=== PATIENT | male | born 1960 | race Caucasian/White ===

== ENCOUNTER 2016-09-15 10:20 | Emergency (ER) | payer BC ==
[2016-09-15 10:32] VITALS: BP 134/91
--- NOTE | 2016-09-15 13:27 | EDM.PDOC ---
Scribed by Nu Hyde 09/15/16 3225 for Tyrese Mak MD ED HPI Trauma - General Chief Complaint: Upper Extremity Injury/Pain Stated Complaint: ARM PAIN [id number] Time Seen by Provider: 09/15/16 11:19 Source: Reports: Patient, RN, RN notes reviewed History Limitations: Reports: No limitations - History of Present Illness INITIAL COMMENTS - FREE TEXT/NARRATIVE: Patient complaining of right arm strain that occurred yesterday when he lifted a heavy steel gate. Patient pulled hard and fast on the gate expecting it to lift up, but it was frozen to the ground. Complaining of pain in the muscles/ tenderness around the right elbow and shoulder. Pain is better with right arm at rest and worse with movement of elbow. Occurred When: yesterday Occurred Where: home Method of Injury: other (lifting a gate) Severity: mild Pain/Injury Location: Reports: upper extremity, right Associated Symptoms: Reports: no other symptoms Allergies/ADRs: Allergies Phenothiazines Allergy (Verified 09/15/16 10:37) Shortness of Breath prochlorperazine [From Compazine] Allergy (Verified 09/15/16 10:37) Anaphylactic Shock prochlorperazine edisylate [From Compazine] Allergy (Verified 09/15/16 10:37) Anaphylactic Shock prochlorperazine maleate [From Compazine] Allergy (Verified 09/15/16 10:37) Anaphylactic Shock Past Medical History HEENT History: Reports: Impaired vision, Other (see below) Other HEENT History: WEARS CORRECTIVE LENSES Cardiovascular History: Reports: None Respiratory History: Reports: None Gastrointestinal History: Reports: None Genitourinary History: Reports: None Musculoskeletal History: Reports: Back pain, chronic, Fracture, Other (see below ) Other Musculoskeletal History: DISPLACEMENT OF THORACIC INTERVERTEBRAL DISC WITHOUT MYELOPATHY; 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;R MALLEOLUS Neurological History: Reports: Concussion Psychiatric History: Reports: None Endocrine/Metabolic History: Reports: None Hematologic History: Reports: None Immunologic History: Reports: None Oncologic (Cancer) History: Reports: None Dermatologic History: Reports: None - Infectious Disease History Infectious Disease History: Reports: Chicken pox, Shingles - Past Surgical History Head Surgeries/Procedures: Reports: None HEENT Surgical History: Reports: None Cardiovascular Surgical History: Reports: None Respiratory Surgical History: Reports: None GI Surgical History: Reports: Appendectomy Male Surgical History: Reports: None Endocrine Surgical History: Reports: None Neurological Surgical History: Reports: None Musculoskeletal Surgical History: Reports: None Oncologic Surgical History: Reports: None Dermatological Surgical History: Reports: None Social & Family History - Family History Family Medical History: Noncontributory - Tobacco Use Smoking Status *Q: Never Smoker Second Hand Smoke Exposure: No - Caffeine Use Caffeine Use: Reports: None - Recreational Drug Use Recreational Drug Use: No Review of Systems - Review of Systems Review Of Systems: ROS reveals no pertinent complaints other than HPI. Trauma Exam - Physical Exam Exam: See Below Exam Limited By: No limitations General Appearance: Reports: alert, WD/WN, no apparent distress Head: Reports: atraumatic, normocephalic Respiratory Exam: Reports: no respiratory distress Cardiovascular: Reports: normal peripheral pulses Back: Reports: full range of motion, normal inspection, non-tender Extremities: Reports: other (right upper extremity with full range of motion. No visible swelling, bruising or deformity. 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 X-ray elbow: Per rad report reveals degenerative changes in the coronoid process within the humeroulnar joint. Departure - Departure Time of Disposition: 12:00 Disposition: Home, Self-Care 01 Condition: good Clinical Impression: Upper right extremity tendon strain Qualifiers: Encounter type: initial encounter Qualified Code(s): S46.901A - Unspecified injury of unspecified muscle, fascia and tendon at shoulder and upper arm level , right arm, initial encounter Instructions: Tendinitis and Tenosynovitis-SportsMed, Tendon Injury Forms: ED Department Discharge Additional Instructions: Rest right arm. Alternate heat and ice packs as needed. Over the counter Ibuprofen as needed. Follow up in clinic in 7-10 days. I have read and agree with the documentation that has been completed regarding this visit. By signing this record, I attest that the documentation was completed in my physical presence and is an accurate record of the encounter.
== END 2016-09-15 12:15 | disposition home or self-care (01) ==
LOC: DL.ED 10:20
DX: S46.911A Strain of unspecified muscle, fascia and tendon at shoulder and upper arm level, right arm, initial encounter (principal); Z90.49 Acquired absence of other specified parts of digestive tract; Z88.8 Allergy status to other drugs, medicaments and biological substances; X50.0XXA Overexertion from strenuous movement or load, initial encounter; Y92.009 Unspecified place in unspecified non-institutional (private) residence as the place of occurrence of the external cause
CPT/HCPCS: 73030-RT; 73080-RT; 99283

== ENCOUNTER 2017-09-12 14:40 | Emergency (ER) | payer BC ==
--- NOTE | 2017-09-12 14:56 | EDM.PDOC ---
ED HPI GENERAL MEDICAL PROBLEM - General Chief Complaint: Genitourinary Problem Stated Complaint: [id number] KIDNEY STONE Time Seen by Provider: 09/12/17 14:55 Source of Information: Reports: Patient, RN, RN Notes Reviewed History Limitations: Reports: No Limitations - History of Present Illness INITIAL COMMENTS - FREE TEXT/NARRATIVE: Patient presents with complaint of sudden onset of severe left flank radiating to the left lower abdomen and groin about 1 hour prior to arrival. Denies fevers or chills. Admits to nausea without vomiting which resolved as the pain improved. The patient states that he could not find a comfortable position when the pain was severe. The patient rates the pain at maximum intensity as 10/10. Rates current pain as 5/10. Denies any other symptoms. Onset: Today Duration: Minutes: Location: Reports: Other (flank) Quality: Reports: Ache Severity: Severe Improves with: Reports: None Worsens with: Reports: None Associated Symptoms: Reports: No Other Symptoms Left Lower Abdomen Pain Score (Numeric/FACES): 11 - Related Data Allergies Allergy/AdvReac Type Severity Reaction Status Date / Time Phenothiazines Allergy Shortness Verified 09/12/17 15:11 of Breath prochlorperazine Allergy Anaphylactic Verified 09/12/17 15:11 [From Compazine] Shock prochlorperazine edisylate Allergy Anaphylactic Verified 09/12/17 15:11 [From Compazine] Shock prochlorperazine maleate Allergy Anaphylactic Verified 09/12/17 15:11 [From Compazine] Shock Home Meds: Home Meds . 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;R MALLEOLUS Neurological History: Reports: Concussion Psychiatric History: Reports: None Endocrine/Metabolic History: Reports: None Hematologic History: Reports: None Immunologic History: Reports: None Oncologic (Cancer) History: Reports: None Dermatologic History: Reports: None - Infectious Disease History Infectious Disease History: Reports: Chicken Pox, Shingles - Past Surgical History Head Surgeries/Procedures: Reports: None HEENT Surgical History: Reports: None Cardiovascular Surgical History: Reports: None Respiratory Surgical History: Reports: None GI Surgical History: Reports: Appendectomy Male Surgical History: Reports: None Endocrine Surgical History: Reports: None Neurological Surgical History: Reports: None Musculoskeletal Surgical History: Reports: None Oncologic Surgical History: Reports: None Dermatological Surgical History: Reports: None Social & Family History - Family History Family Medical History: Noncontributory - Tobacco Use Smoking Status *Q: Never Smoker Second Hand Smoke Exposure: No - Caffeine Use Caffeine Use: Reports: None - Recreational Drug Use Recreational Drug Use: No ED ROS GENERAL - Review of Systems Review Of Systems: ROS reveals no pertinent complaints other than HPI. ED EXAM, RENAL/ - Physical Exam Exam: See Below Exam Limited By: No Limitations General Appearance: Alert, WD/WN, No Apparent Distress Throat/Mouth: Normal Inspection, Normal Voice, No Airway Compromise Head: Atraumatic, Normocephalic Neck: Normal Inspection Respiratory/Chest: No Respiratory Distress, Lungs Clear, Normal Breath Sounds, No Accessory Muscle Use, Chest Non-Tender Cardiovascular: Normal Peripheral Pulses, Regular Rate, Rhythm, No Edema, No Gallop, No JVD, No Murmur, No Rub GI/Abdominal: Normal Bowel Sounds, Soft, Non-Tender, No Organomegaly, No Distention, No Abnormal Bruit, No Mass. No: Guarding, Rigid, Rebound (Male) Exam: Deferred Rectal (Males) Exam: Deferred Back Exam: Normal Inspection, Full Range of Motion, CVA Tenderness (L) (very mild left CVA tenderness) Extremities: Normal Inspection Neurological: Alert, Oriented, CN II-XII Intact, Normal Cognition, Normal Gait, No Motor/Sensory Deficits Psychiatric: Normal Affect, Normal Mood Skin Exam: Warm, Dry, Intact, Normal Color, No Rash Course - Vital Signs Last Recorded V/S: Last Vital Signs Temp 36.9 C 09/12/17 17:15 Pulse 68 09/12/17 17:15 Resp 16 09/12/17 17:15 BP 119/74 09/12/17 17:15 Pulse Ox 98 09/12/17 17:15 - Orders/Labs/Meds Orders: Active Orders 24 hr Category Date Time Status Peripheral IV Care [RC] . DIRECTED Care 09/12/17 15:14 Active Sodium Chloride 0.9% [Saline Flush] Med 09/12/17 15:14 Active 10 ml FLUSH ASDIRECTED PRN Peripheral IV Insertion Adult [OM.PC] Stat Oth 09/12/17 15:14 Ordered Medication Orders Sodium Chloride (Saline Flush) 10 ml FLUSH ASDIRECTED PRN PRN Reason: Keep Vein Open Last Admin: 09/12/17 15:19 Dose: 10 ml Labs: Laboratory Tests 09/12/17 09/12/17 09/12/17 Range/Units 14:47 14:55 14:55 WBC 11.0 H (5.0-10.0) 10^3/uL RBC 4.76 (4.6-6.2) 10^6/uL Hgb 14.6 (14.0-18.0) g/dL Hct 43.3 (40.0-54.0) % MCV 91.0 (80-100) fL MCH 30.7 (27.0-34.0) pg MCHC 33.7 (33.0-35.0) g/dL Plt Count 228 (150-450) 10^3/uL Neut % (Auto) 81.1 H (42.2-75.2) % Lymph % (Auto) 8.1 L (20.5-50.1) % [place] % (Auto) 8.6 H (2-8) % Eos % (Auto) 1.8 (1.0-3.0) % Baso % (Auto) 0.4 (0.0-1.0) % Sodium 139 (135-145) mmol/L Potassium 4.0 (3.6-5.0) mmol/L Chloride 104 (101-111) mmol/L Carbon Dioxide 27.0 (21.0-31.0) mmol/L Anion Gap 12.0 BUN 17 (7-18) mg/dL Creatinine 1.1 (0.6-1.3) mg/dL Est Cr Clr Drug Dosing 83.28 mL/min Estimated GFR (MDRD) > 60 BUN/Creatinine Ratio 15.45 Glucose 81 (74-105) mg/dL Calcium 8.9 (8.4-10.2) mg/dl Total Bilirubin 0.7 (0.2-1.0) mg/dL AST 30 (10-42) IU/L ALT 37 (10-60) IU/L Alkaline Phosphatase 64 (42-121) IU/L Total Protein 7.1 (6.7-8.2) g/dl Albumin 4.2 (3.2-5.5) g/dl Globulin 2.9 Albumin/Globulin Ratio 1.45 Urine Color Yellow (YELLOW) Urine Appearance Slightly cloudy (CLEAR) Urine pH 6.0 (5.0-9.0) Ur Specific [place] 1.025 (1.005-1.030) Urine Protein 30 H (NEGATIVE) Urine Glucose (UA) Negative (NEGATIVE) Urine Ketones Trace H (NEGATIVE) Urine Occult Blood Large H (NEGATIVE) Urine Nitrite Negative (NEGATIVE) Urine Bilirubin Negative (NEGATIVE) Urine Urobilinogen 0.2 (0.2-1.0) mg/dL Ur Leukocyte Esterase Trace H (NEGATIVE) Urine RBC 50-75 H /HPF Urine WBC 0-5 (0-5/HPF) /HPF Ur Epithelial Cells Rare /HPF Amorphous Sediment Rare (0/HPF) /HPF Urine Bacteria Rare (0-FEW/HPF) /HPF Urine Mucus Rare /LPF Urine Yeast Rare H (0/HPF) /HPF Meds: Medications Generic Name Dose Route Start Last Admin Trade Name Freq PRN Reason Stop Dose Admin Sodium Chloride 10 ml 09/12/17 15:14 09/12/17 15:19 Saline Flush FLUSH 10 ml ASDIRECTED PRN Administration Keep Vein Open Discontinued Medications Generic Name Dose Route Start Last Admin Trade Name Freq PRN Reason Stop Dose Admin Ketorolac Tromethamine 30 mg 09/12/17 15:14 09/12/17 15:18 Toradol IVPUSH 09/12/17 15:15 30 mg ONETIME ONE Administration Ondansetron HCl 4 mg 09/12/17 15:14 Zofran IV 09/12/17 15:15 ONETIME ONE Tamsulosin HCl 0.4 mg 09/12/17 17:45 Flomax PO 09/12/17 17:46 ONETIME ONE - Radiology Interpretation Free Text/Narrative:: CT abdomen and pelvis: Multiple tiny 1-3mm diameter calyceal calcifications scattered mid and lower poles both kidneys (3cm on the left, one on the right). Asymmetric mild dilatation of the renal pelvis and calyces on the left with relative slight dilatation of the ipsilateral ureter (suggest recently passed tiny stone located in the dependent portion of the urinary bladder). No cystic or solid renal cortical mass lesion and no signs of obstructive uropathy on the right. Punctate midline prostatic (urethral?) calcifications and probable phleboliths lower pelvis on the left. No previous exams. Contracted gallbladder , unenhanced liver, stomach, spleen, pancreas and adrenal glands unremarkable. No diverticula of the colon and no sign of mechanical bowel obstruction, pelvic/ abdominal mass lesion, ascites or free air. Normal caliber aortoiliac vessels and lumbar spine unremarkable. CONCLUSION: Bilateral nephrolithiasis. Suggest recently "passed" tiny stone left ureter into the bladder. Clinical? per Rad. report. Departure - Departure Time of Disposition: 17:38 Disposition: Home, Self-Care 01 Condition: Good Clinical Impression: Kidney stone - Discharge Information Instructions: Renal Colic, [id number], Kidney Stones, [id number] Forms: ED Department Discharge Additional Instructions: Rx: Percocet 5mg/325mg *Do not drive or work while under the influence of this medication. Rx: Flomax 0.4mg Drink plenty of water. Follow up in clinic next week for recheck, and consideration of referral to urology for evaluation of the stones that remain in both kidneys. Return to ER if your pain becomes uncontrolled, if you become unable to pass your urine, or develop a fever. - My Orders Last 24 Hours: My Active Orders 09/12/17 15:14 Peripheral IV Care [RC] . DIRECTED Sodium Chloride 0.9% [Saline Flush] 10 ml FLUSH ASDIRECTED PRN Peripheral IV Insertion Adult [OM.PC] Stat - Assessment/Plan Last 24 Hours: My Active Orders 09/12/17 15:14 Peripheral IV Care [RC] . DIRECTED Sodium Chloride 0.9% [Saline Flush] 10 ml FLUSH ASDIRECTED PRN Peripheral IV Insertion Adult [OM.PC] Stat
[2017-09-12] MEDS ORDERED: Ketorolac 30 MG/ML SDV IVPUSH ONE (15:14)
[2017-09-12] MEDS ORDERED: Ondansetron 4 MG/2 ML SDV IV ONE (15:14)
[2017-09-12] MEDS ORDERED: Sodium Chloride 0.9% 10 ML Syringe FLUSH PRN (15:14)
[2017-09-12 15:30] LABS: CHLORIDE,CL 104 mmol/L (101-111); SODIUM,NA 139 mmol/L (135-145)
--- NOTE | 2017-09-12 16:46 | CT ---
Clinical history: 57-year-old male with hematuria and left flank/left lower quadrant abdomen pain. Scan technique: Volume acquisition of data emergency unenhanced CT scan of the abdomen and pelvis (ki dneys/ureters/bladder) obtained while patient was lying supine on the Siemens multi slice scanner [place], [place]. All data archived in the PAC system for storage, reform atting axial/sagittal/coronal planes and study. Interpretation: Abnormal. 1. Multiple tiny 1-3mm diameter calyceal calcifications scattered mid and lower poles both kidneys (3 on the left, one on the right). 2. Asymmetric mild dilatation of the renal pelvis and calyces on the left with relative slight dilata tion of the ipsilateral ureter (suggest recently passed tiny stone located in the dependent portion o f the urinary bladder). 3. No cystic or solid renal cortical mass lesion and no signs of obstructive uropathy on the right. 4. Punctate midline prostatic (urethral?) Calcifications and probable phleboliths lower pelvis on the left. No previous exams. 5. Contracted gallbladder, unenhanced liver, stomach, spleen, pancreas and adrenal glands unremarkabl e. 6. No diverticula of the colon and no sign of mechanical bowel obstruction, pelvic/abdominal mass les ion, ascites or free air. 7. Normal caliber aortoiliac vessels and lumbar spine unremarkable. CONCLUSION: Bilateral nephrolithiasis. Suggest recently "passed" tiny stone left ureter into the blad more. Clinical?
[2017-09-12 17:15] VITALS: BP 119/74
[2017-09-12] MEDS ORDERED: Tamsulosin 0.4 MG Cap.ER PO ONE (17:45)
== END 2017-09-12 17:54 | disposition home or self-care (01) ==
LOC: DL.ED 14:40
DX: N20.0 Calculus of kidney (principal); Z88.8 Allergy status to other drugs, medicaments and biological substances
CPT/HCPCS: 36415; 74176; 80053; 81001; 85025; 96374; 96375; 99284; A9270; J1885; J7050

== ENCOUNTER 2018-02-27 13:30 | Emergency (ER) | payer BC ==
[2018-02-27 13:33] VITALS: BP 156/89
[2018-02-27] MEDS ORDERED: Ondansetron 4 MG/2 ML SDV IV ONE (13:44)
[2018-02-27] MEDS ORDERED: Sodium Chloride 0.9% 1,000 ML IV ONE (13:44)
[2018-02-27] MEDS ORDERED: Ketorolac 30 MG/ML SDV IVPUSH ONE (13:55)
[2018-02-27 14:06] LABS: ANION GAP 14.7; CHLORIDE,CL 104 mmol/L (101-111); SODIUM,NA 139 mmol/L (135-145)
[2018-02-27] MEDS ORDERED: Tamsulosin 0.4 MG Cap.ER PO ONE (15:01)
--- NOTE | 2018-02-27 15:05 | EDM.PDOC ---
ED HPI GENERAL MEDICAL PROBLEM - General Chief Complaint: Flank Pain Stated Complaint: [id number] KIDNEY STONES Time Seen by Provider: 02/27/18 13:45 Source of Information: Reports: Patient History Limitations: Reports: No Limitations - History of Present Illness INITIAL COMMENTS - FREE TEXT/NARRATIVE: This 57 yo male patient was brought to the ED by his due to left lower abdomen and left flank pain. The patient reports his symptoms started today at about noon. The patient reports his symptoms have gotten worse since the onset. Onset: Today Onset Date: 02/27/18 Onset Time: 12:00 Duration: Constant, Getting Worse Location: Reports: Abdomen, Back (left flank) Quality: Reports: Ache, Sharp, Stabbing Severity: Moderate Improves with: Reports: None Worsens with: Reports: None Associated Symptoms: Reports: No Other Symptoms Left Flank Pain Score (Numeric/FACES): 10 - Related Data Allergies Allergy/AdvReac Type Severity Reaction Status Date / Time Phenothiazines Allergy Shortness Verified 09/12/17 15:11 of Breath prochlorperazine Allergy Anaphylactic Verified 09/12/17 15:11 [From Compazine] Shock prochlorperazine edisylate Allergy Anaphylactic Verified 09/12/17 15:11 [From Compazine] Shock prochlorperazine maleate Allergy Anaphylactic Verified 09/12/17 15:11 [From Compazine] Shock Home Meds: Home Meds . 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;R MALLEOLUS Neurological History: Reports: Concussion Psychiatric History: Reports: None Endocrine/Metabolic History: Reports: None Hematologic History: Reports: None Immunologic History: Reports: None Oncologic (Cancer) History: Reports: None Dermatologic History: Reports: None - Infectious Disease History Infectious Disease History: Reports: Chicken Pox, Shingles - Past Surgical History Head Surgeries/Procedures: Reports: None HEENT Surgical History: Reports: None Cardiovascular Surgical History: Reports: None Respiratory Surgical History: Reports: None GI Surgical History: Reports: Appendectomy Male Surgical History: Reports: None Endocrine Surgical History: Reports: None Neurological Surgical History: Reports: None Musculoskeletal Surgical History: Reports: None Oncologic Surgical History: Reports: None Dermatological Surgical History: Reports: None Social & Family History - Family History Family Medical History: Noncontributory - Tobacco Use Smoking Status *Q: Never Smoker - Caffeine Use Caffeine Use: Reports: Soda, Tea - Recreational Drug Use Recreational Drug Use: No ED ROS GENERAL - Review of Systems Review Of Systems: ROS reveals no pertinent complaints other than HPI. ED EXAM, RENAL/ - Physical Exam Exam: See Below Exam Limited By: No Limitations General Appearance: Alert, WD/WN, Moderate Distress Eye Exam: Bilateral Eye: EOMI, Normal Inspection, PERRL Ears: Normal External Exam, Normal Canal, Hearing Grossly Normal, Normal TMs Nose: Normal Inspection, Normal Mucosa, No Blood Throat/Mouth: Normal Inspection, Normal Lips, Normal Teeth, Normal Gums, Normal Oropharynx, Normal Voice, No Airway Compromise Head: Atraumatic, Normocephalic Neck: Normal Inspection, Supple, Non-Tender, Full Range of Motion Respiratory/Chest: No Respiratory Distress, Lungs Clear, Normal Breath Sounds, No Accessory Muscle Use, Chest Non-Tender Cardiovascular: Normal Peripheral Pulses, Regular Rate, Rhythm, No Edema, No Gallop, No JVD, No Murmur, No Rub GI/Abdominal: Tender (left lower quadrant) (Male) Exam: Deferred Rectal (Males) Exam: Deferred Back Exam: Normal Inspection, Full Range of Motion, NT Extremities: Normal Inspection, Normal Range of Motion, Non-Tender, Normal Capillary Refill, No Pedal Edema Neurological: Alert, Oriented Psychiatric: Normal Affect, Normal Mood Skin Exam: Warm, Dry, Intact, Normal Color, No Rash Lymphatic: No Adenopathy Course - Vital Signs Last Recorded V/S: Last Vital Signs Temp 36.4 C 02/27/18 13:32 Pulse 78 02/27/18 13:32 Resp 16 02/27/18 13:32 BP 156/89 H 02/27/18 13:32 Pulse Ox 100 02/27/18 13:32 - Orders/Labs/Meds Orders: Active Orders 24 hr Category Date Time Status UA W/MICROSCOPIC [URIN] Stat Lab 02/27/18 13:52 Ordered Labs: Laboratory Tests 02/27/18 02/27/18 02/27/18 Range/Units 13:40 13:40 13:40 WBC 10.8 H (5.0-10.0) 10^3/uL RBC 5.15 (4.6-6.2) 10^6/uL Hgb 15.5 (14.0-18.0) g/dL Hct 45.6 (40.0-54.0) % MCV 88.5 (80-100) fL MCH 30.1 (27.0-34.0) pg MCHC 34.0 (33.0-35.0) g/dL Plt Count 285 (150-450) 10^3/uL Neut % (Auto) 75.4 H (42.2-75.2) % Lymph % (Auto) 17.6 L (20.5-50.1) % [place] % (Auto) 5.8 (2-8) % Eos % (Auto) 0.9 L (1.0-3.0) % Baso % (Auto) 0.3 (0.0-1.0) % Sodium 139 (135-145) mmol/L Potassium 3.7 (3.6-5.0) mmol/L Chloride 104 (101-111) mmol/L Carbon Dioxide 24.0 (21.0-31.0) mmol/L Anion Gap 14.7 BUN 17 (7-18) mg/dL Creatinine 1.0 (0.6-1.3) mg/dL Est Cr Clr Drug Dosing 91.61 mL/min Estimated GFR (MDRD) > 60 BUN/Creatinine Ratio 17.00 Glucose 158 H (74-105) mg/dL Calcium 9.6 (8.4-10.2) mg/dl Total Bilirubin 0.9 (0.2-1.0) mg/dL AST 31 (10-42) IU/L ALT 22 (10-60) IU/L Alkaline Phosphatase 66 (42-121) IU/L Total Protein 7.8 (6.7-8.2) g/dl Albumin 4.9 (3.2-5.5) g/dl Globulin 2.9 Albumin/Globulin Ratio 1.69 Amylase 30 (28-100) U/L Lipase 20 L (22-51) U/L Urine Color (YELLOW) Urine Appearance (CLEAR) Urine pH (5.0-9.0) Ur Specific [place] (1.005-1.030) Urine Protein (NEGATIVE) Urine Glucose (UA) (NEGATIVE) Urine Ketones (NEGATIVE) Urine Occult Blood (NEGATIVE) Urine Nitrite (NEGATIVE) Urine Bilirubin (NEGATIVE) Urine Urobilinogen (0.2-1.0) mg/dL Ur Leukocyte Esterase (NEGATIVE) Urine RBC /HPF Urine WBC (0-5/HPF) /HPF Ur Epithelial Cells /HPF Urine Bacteria (0-FEW/HPF) /HPF Urine Mucus /LPF 02/27/18 Range/Units 13:52 WBC (5.0-10.0) 10^3/uL RBC (4.6-6.2) 10^6/uL Hgb (14.0-18.0) g/dL Hct (40.0-54.0) % MCV (80-100) fL MCH (27.0-34.0) pg MCHC (33.0-35.0) g/dL Plt Count (150-450) 10^3/uL Neut % (Auto) (42.2-75.2) % Lymph % (Auto) (20.5-50.1) % [place] % (Auto) (2-8) % Eos % (Auto) (1.0-3.0) % Baso % (Auto) (0.0-1.0) % Sodium (135-145) mmol/L Potassium (3.6-5.0) mmol/L Chloride (101-111) mmol/L Carbon Dioxide (21.0-31.0) mmol/L Anion Gap BUN (7-18) mg/dL Creatinine (0.6-1.3) mg/dL Est Cr Clr Drug Dosing mL/min Estimated GFR (MDRD) BUN/Creatinine Ratio Glucose (74-105) mg/dL Calcium (8.4-10.2) mg/dl Total Bilirubin (0.2-1.0) mg/dL AST (10-42) IU/L ALT (10-60) IU/L Alkaline Phosphatase (42-121) IU/L Total Protein (6.7-8.2) g/dl Albumin (3.2-5.5) g/dl Globulin Albumin/Globulin Ratio Amylase (28-100) U/L Lipase (22-51) U/L Urine Color Yellow (YELLOW) Urine Appearance Turbid (CLEAR) Urine pH 8.5 (5.0-9.0) Ur Specific [place] 1.020 (1.005-1.030) Urine Protein 100 H (NEGATIVE) Urine Glucose (UA) Negative (NEGATIVE) Urine Ketones >=160 H (NEGATIVE) Urine Occult Blood Large H (NEGATIVE) Urine Nitrite Negative (NEGATIVE) Urine Bilirubin Negative (NEGATIVE) Urine Urobilinogen 0.2 (0.2-1.0) mg/dL Ur Leukocyte Esterase Negative (NEGATIVE) Urine RBC 50-75 H /HPF Urine WBC 0-5 (0-5/HPF) /HPF Ur Epithelial Cells Few /HPF Urine Bacteria Many H (0-FEW/HPF) /HPF Urine Mucus Many H /LPF Meds: Medications Discontinued Medications Generic Name Dose Route Start Last Admin Trade Name Freq PRN Reason Stop Dose Admin Sodium Chloride 1,000 mls @ 999 mls/hr 02/27/18 13:44 02/27/18 13:55 Normal Saline IV 02/27/18 14:44 999 mls/hr .BOLUS ONE Administration Ketorolac Tromethamine 30 mg 02/27/18 13:55 02/27/18 14:00 Toradol IVPUSH 02/27/18 13:56 30 mg ONETIME ONE Administration Ondansetron HCl 4 mg 02/27/18 13:44 02/27/18 13:56 Zofran IV 02/27/18 13:45 4 mg ONETIME ONE Administration Tamsulosin HCl 0.4 mg 02/27/18 15:01 02/27/18 15:45 Flomax PO 02/27/18 15:02 0.4 mg ONETIME ONE Administration Departure - Departure Time of Disposition: 15:48 Disposition: Home, Self-Care 01 Condition: Fair Clinical Impression: Kidney stone - Discharge Information *PRESCRIPTION DRUG MONITORING PROGRAM REVIEWED*: Not Applicable *COPY OF PRESCRIPTION DRUG MONITORING REPORT IN PATIENT JACQUIE: Not Applicable Instructions: Kidney Stones, [id number] Forms: ED Department Discharge Care Plan Goals: The patient was advised of the examination, lab and CT results during the visit. The patient was given IV fluids, an IV dose of Toradol and an oral dose of Flomax while in the ED. The patient was discharged with a script for Toradol (10 mg) #20 to take 1 by mouth every 6 hours and Flomax (0.4 mg) to take one by mouth daily until gone. The patient may want to consider establishing an appointment with a specialist for continued evaluation and management. If the patient has any additional symptoms or concerns, the patient should either return to the emergency department or follow-up with his primary care provider. - My Orders Last 24 Hours: My Active Orders 02/27/18 13:52 UA W/MICROSCOPIC [URIN] Stat - Assessment/Plan Last 24 Hours: My Active Orders 02/27/18 13:52 UA W/MICROSCOPIC [URIN] Stat
--- NOTE | 2018-02-27 15:31 | CT ---
Clinical history: 57-year-old 200 pound male with left flank and left lower quadrant pain (history pr evious "kidney stones"). Patient reportedly "passed" tiny stone left ureter 12 September 2017. Reevaluate please. Scan technique: Volume acquisition of data from the abdomen and pelvis (kidneys/ureters/bladder) obta ined without oral or IV contrast employing "stone technique" while patient was lying supine on the [facility] multi slice scanner [place], [place]. All data archived in the [employer] system for storage, reformatting axial/sagittal/coronal planes and study. Interpretation: Abnormal. 1. *Multiple tiny 1-3 mm calyceal calcifications both kidneys (mostly on the left) and tiny new 1 mm calculus distal left ureter with associated mild proximal ureterectasis and prominent pyelocaliectasi s left kidney. No current signs of pyelosinus backflow. 2. Midline prostate calcifications and a few phleboliths scattered lower left pelvis present on Sep exam. 3. Gallbladder, unenhanced liver, stomach, spleen, pancreas and adrenal glands unremarkable. 4. Normal caliber aortoiliac vessels. Lumbar spine unremarkable. 5. No new pelvic or abdominal mass lesion and no signs of retroperitoneal lymphadenopathy, mechanical bowel obstruction, ascites or free intraperitoneal air. Lung bases clear. CONCLUSION: Tiny distal left ureteral calculus associated signs of ipsilateral obstructive uropathy. Bilateral nephrolithiasis.
== END 2018-02-27 15:18 | disposition home or self-care (01) ==
LOC: DL.ED 13:30
DX: N20.2 Calculus of kidney with calculus of ureter (principal); Z88.8 Allergy status to other drugs, medicaments and biological substances
CPT/HCPCS: 36415; 74176; 80053; 81001; 82150; 83690; 85025; 96361; 96374; 96375; 99284; A9270; J1885; J2405; J7030

== ENCOUNTER 2018-02-27 22:04 | Emergency (ER) | payer BC ==
[2018-02-27] MEDS ORDERED: Ondansetron 4 MG Tab.DIS PO ONE (22:05)
[2018-02-27] MEDS ORDERED: Acetaminophen/HYDROcodone 325-10 MG Tab PO ONE (22:05)
[2018-02-27] MEDS ORDERED: HYDROmorphone 0.5 MG/0.5 ML Syringe IVPUSH ONE (22:45)
[2018-02-27] MEDS ORDERED: Sodium Chloride 0.9% 1,000 ML IV ONE (22:45)
[2018-02-27] MEDS ORDERED: Ondansetron 4 MG/2 ML SDV IV ONE (22:45)
--- NOTE | 2018-02-27 22:50 | EDM.PDOC ---
ED HPI GENERAL MEDICAL PROBLEM - General Chief Complaint: Abdominal Pain Stated Complaint: KIDNEY STONES Time Seen by Provider: 02/27/18 22:46 Source of Information: Reports: Patient History Limitations: Reports: No Limitations - History of Present Illness INITIAL COMMENTS - FREE TEXT/NARRATIVE: was here earlier for same. Dx K-stone. report reveal 1-3mm multiple bilat stones. was doing ok at home then suddenly pain returned. Left Lower Abdomen Pain Score (Numeric/FACES): 8 - Related Data Allergies Allergy/AdvReac Type Severity Reaction Status Date / Time Phenothiazines Allergy Shortness Verified 02/27/18 22:14 of Breath prochlorperazine Allergy Anaphylactic Verified 02/27/18 22:14 [From Compazine] Shock prochlorperazine edisylate Allergy Anaphylactic Verified 02/27/18 22:14 [From Compazine] Shock prochlorperazine maleate Allergy Anaphylactic Verified 02/27/18 22:14 [From Compazine] Shock Home Meds: Home Meds . 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;R MALLEOLUS Neurological History: Reports: Concussion Psychiatric History: Reports: None Endocrine/Metabolic History: Reports: None Hematologic History: Reports: None Immunologic History: Reports: None Oncologic (Cancer) History: Reports: None Dermatologic History: Reports: None - Infectious Disease History Infectious Disease History: Reports: Chicken Pox, Shingles - Past Surgical History Head Surgeries/Procedures: Reports: None HEENT Surgical History: Reports: None Cardiovascular Surgical History: Reports: None Respiratory Surgical History: Reports: None GI Surgical History: Reports: Appendectomy Male Surgical History: Reports: None Endocrine Surgical History: Reports: None Neurological Surgical History: Reports: None Musculoskeletal Surgical History: Reports: None Oncologic Surgical History: Reports: None Dermatological Surgical History: Reports: None Social & Family History - Family History Family Medical History: Noncontributory - Tobacco Use Smoking Status *Q: Never Smoker - Caffeine Use Caffeine Use: Reports: Soda, Tea - Recreational Drug Use Recreational Drug Use: No ED ROS GENERAL - Review of Systems Review Of Systems: ROS reveals no pertinent complaints other than HPI. ED EXAM, RENAL/ - Physical Exam Exam: See Below Exam Limited By: No Limitations General Appearance: Alert, WD/WN, Mild Distress, Moderate Distress, Other (pain) Ears: Hearing Grossly Normal Throat/Mouth: Normal Voice, No Airway Compromise Head: Atraumatic Neck: Non-Tender, Full Range of Motion Respiratory/Chest: No Respiratory Distress Cardiovascular: Regular Rate, Rhythm GI/Abdominal: Other (side pain) Neurological: Alert, Oriented, Normal Cognition, Normal Gait, No Motor/Sensory Deficits Psychiatric: Tearful Skin Exam: Warm, Dry, Normal Color Lymphatic: No Adenopathy Course - Vital Signs Last Recorded V/S: Last Vital Signs Temp 37.4 C 02/27/18 22:15 Pulse 77 02/27/18 22:15 Resp 15 02/27/18 22:15 BP 171/81 H 02/27/18 22:15 Pulse Ox 100 02/27/18 22:15 - Orders/Labs/Meds Orders: Active Orders 24 hr Category Date Time Status Sodium Chloride 0.9% [Normal Saline] 1,000 ml Med 02/28/18 00:39 Active IV .BOLUS Medication Orders Sodium Chloride (Normal Saline) 1,000 mls @ 999 mls/hr IV .BOLUS ONE Stop: 02/28/18 01:39 Last Admin: 02/28/18 00:44 Dose: 999 mls/hr Meds: Medications Generic Name Dose Route Start Last Admin Trade Name Freq PRN Reason Stop Dose Admin Sodium Chloride 1,000 mls @ 999 mls/hr 02/28/18 00:39 02/28/18 00:44 Normal Saline IV 02/28/18 01:39 999 mls/hr .BOLUS ONE Administration Discontinued Medications Generic Name Dose Route Start Last Admin Trade Name Freq PRN Reason Stop Dose Admin Hydromorphone HCl 0.5 mg 02/27/18 22:45 02/27/18 23:02 Dilaudid IVPUSH 02/27/18 22:46 0.5 mg ONETIME ONE Administration Sodium Chloride 1,000 mls @ 999 mls/hr 02/27/18 22:45 02/27/18 23:00 Normal Saline IV 02/27/18 23:45 999 mls/hr .BOLUS ONE Administration Ondansetron HCl 4 mg 02/27/18 22:45 02/27/18 23:01 Zofran IV 02/27/18 22:46 4 mg ONETIME ONE Administration - Re-Assessments/Exams Free Text/Narrative Re-Assessment/Exam: 02/28/18 01:35 re-exam; feeling much better able to urinate. prefers home and return prn. Departure - Departure Time of Disposition: 01:36 Disposition: Home, Self-Care 01 Condition: Good Clinical Impression: Renal colic on left side - Discharge Information Forms: ED Department Discharge Additional Instructions: 1) drink lots of liquids 2) return if there is nay change or concern rx togo; zofran ODT 4mg x 1 norco x 1 - My Orders Last 24 Hours: My Active Orders 02/28/18 00:39 Sodium Chloride 0.9% [Normal Saline] 1,000 ml IV .BOLUS - Assessment/Plan Last 24 Hours: My Active Orders 02/28/18 00:39 Sodium Chloride 0.9% [Normal Saline] 1,000 ml IV .BOLUS
[2018-02-27] MEDS ORDERED: HYDROmorphone 0.5 MG/0.5 ML Syringe ONE (22:54)
[2018-02-27] MEDS ORDERED: Ondansetron 4 MG/2 ML SDV ONE (22:54)
[2018-02-28] MEDS ORDERED: Sodium Chloride 0.9% 1,000 ML IV ONE (00:39)
[2018-02-28] MEDS ORDERED: Acetaminophen/HYDROcodone 325-10 MG Tab ONE (01:36)
[2018-02-28] MEDS ORDERED: Ondansetron 4 MG Tab.DIS ONE (01:36)
[2018-02-28 02:10] VITALS: BP 131/70
== END 2018-02-28 01:50 | disposition home or self-care (01) ==
LOC: DL.ED 22:04
DX: N23 Unspecified renal colic (principal); Z88.8 Allergy status to other drugs, medicaments and biological substances
CPT/HCPCS: 96361; 96374; 96375; 99284; A9270; J1170; J2405; J7030

== ENCOUNTER 2020-09-09 16:13 | Emergency (ER) | payer BC ==
[2020-09-09 16:28] VITALS: BP 147/96; PULSE 81
--- NOTE | 2020-09-09 16:34 | CR ---
PROCEDURE INFORMATION: Exam: XR Right Foot Exam date and time: 09/09/2020 4:24 PM Age: 60 years old Clinical indication: Injury or trauma; Other: Cow stepped on foot; Swelling (edema); Injury date: 09/09/2020; Prior surgery; Surgery date: 6+ months; Surgery type: Right ankle surgery; Additional info: Cow stepped on right foot TECHNIQUE: Imaging protocol: XR Right foot. Views: 3 or more views. COMPARISON: No relevant prior studies available. FINDINGS: Bones/joints: There is no evidence of acute fracture. There is no evidence of joint malalignment or dislocation. Postoperative changes of the distal tibia. Soft tissues: There are no soft tissue masses or fluid collections. IMPRESSION: 1. No evidence of acute fracture. 2. No evidence of acute dislocation.
--- NOTE | 2020-09-09 16:40 | EDM.PDOC ---
Scribed by Nu Hyde 09/09/20 2614 for Elizabeth Mak MD ED HPI GENERAL MEDICAL PROBLEM - General Chief Complaint: Lower Extremity Injury/Pain Stated Complaint: BROKEN FOOT Time Seen by Provider: 09/09/20 16:19 Source of Information: Reports: Patient, RN, RN Notes Reviewed History Limitations: Reports: No Limitations - History of Present Illness INITIAL COMMENTS - FREE TEXT/NARRATIVE: Patient presents to ED by POV stating that a cow stepped on his right foot earlier today. He has pain in the right foot. No other injury. Pain is 7/10. Onset: Today Duration: Constant Location: Reports: Lower Extremity, Right Quality: Reports: Ache Severity: Moderate Improves with: Reports: None Worsens with: Reports: None Associated Symptoms: Reports: No Other Symptoms Foot Pain Score (Numeric/FACES): 10 - Related Data Allergies Allergy/AdvReac Type Severity Reaction Status Date / Time Phenothiazines Allergy Shortness Verified 09/09/20 16:27 of Breath prochlorperazine Allergy Anaphylactic Verified 09/09/20 16:27 [From Compazine] Shock prochlorperazine edisylate Allergy Anaphylactic Verified 09/09/20 16:27 [From Compazine] Shock prochlorperazine maleate Allergy Anaphylactic Verified 09/09/20 16:27 [From Compazine] Shock Home Meds: Home Meds . 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;R MALLEOLUS Neurological History: Reports: Concussion Psychiatric History: Reports: None Endocrine/Metabolic History: Reports: None Hematologic History: Reports: None Immunologic History: Reports: None Oncologic (Cancer) History: Reports: None Dermatologic History: Reports: None - Infectious Disease History Infectious Disease History: Reports: Chicken Pox, Shingles - Past Surgical History Head Surgeries/Procedures: Reports: None HEENT Surgical History: Reports: None Cardiovascular Surgical History: Reports: None Respiratory Surgical History: Reports: None GI Surgical History: Reports: Appendectomy Male Surgical History: Reports: None Endocrine Surgical History: Reports: None Neurological Surgical History: Reports: None Musculoskeletal Surgical History: Reports: None Oncologic Surgical History: Reports: None Dermatological Surgical History: Reports: None Social & Family History - Family History Family Medical History: No Pertinent Family History - Caffeine Use Caffeine Use: Reports: Soda, Tea Review of Systems - Review of Systems Review Of Systems: Comprehensive ROS is negative, except as noted in HPI. ED EXAM, GENERAL - Physical Exam Exam: See Below Exam Limited By: No Limitations General Appearance: Alert, WD/WN, No Apparent Distress Throat/Mouth: Normal Voice Head: Atraumatic, Normocephalic Respiratory/Chest: No Respiratory Distress Cardiovascular: Normal Peripheral Pulses Extremities: Normal Range of Motion, No Pedal Edema, Normal Capillary Refill, Other (Dorsum of right foot is tender to palpation, no visible swelling, bruising, redness, increased warmth, or deformity). No: Joint Swelling, Increased Warmth, Mottled, Pallor, Redness Neurological: Alert, Oriented, No Motor/Sensory Deficits Psychiatric: Normal Mood Skin Exam: Warm, Dry, Intact, Normal Color, No Rash Course - Vital Signs Last Recorded V/S: Last Vital Signs Temp 97.9 F 09/09/20 16:22 Pulse 81 09/09/20 16:22 Resp 14 09/09/20 16:22 BP 147/96 H 09/09/20 16:22 Pulse Ox 99 09/09/20 16:22 - Radiology Interpretation Free Text/Narrative:: [facility] Final Radiology Report Call: [phone] assistance Online chat: [email or web address] Name: REGINA ROBLEDO Age: 60Years M Date: 09/09/2020 SSN: -- : 1960 Study: CR FOOT COMP MIN 3V RT Requesting Physician: ELIZABETH MAK Images: 3 Addl Studies: Provided Clinical History: cow stepped on right foot Contrast: Contrast Medium: Contrast Amount: Contrast Method: CONFIDENTIALITY STATEMENT This report is intended only for use by the referring physician, and only in accordance with law. If you received this in error, call [phone]. Page 1 of 1 PROCEDURE INFORMATION: Exam: XR Right Foot Exam date and time: 09/09/2020 4:24 PM Age: 60 years old Clinical indication: Injury or trauma; Other: Cow stepped on foot; Swelling (edema); Injury date: 09/09/2020; Prior surgery; Surgery date: 6+ months; Surgery type: Right ankle surgery; Additional info: Cow stepped on right foot TECHNIQUE: Imaging protocol: XR Right foot. Views: 3 or more views. COMPARISON: No relevant prior studies available. FINDINGS: Bones/joints: There is no evidence of acute fracture. There is no evidence of joint malalignment or dislocation. Postoperative changes of the distal tibia. Soft tissues: There are no soft tissue masses or fluid collections. IMPRESSION: 1. No evidence of acute fracture. 2. No evidence of acute dislocation. Thank you for allowing us to participate in the care of your patient. Dictated and Authenticated by: Scott Adams DO 09/09/2020 4:34 PM Central Time ([place] & [place]) Departure - Departure Time of Disposition: 16:38 Disposition: Home, Self-Care 01 Condition: Good Clinical Impression: Contusion of right foot, initial encounter - Discharge Information *PRESCRIPTION DRUG MONITORING PROGRAM REVIEWED*: Not Applicable *COPY OF PRESCRIPTION DRUG MONITORING REPORT IN PATIENT JACQUIE: Not Applicable Instructions: Foot Contusion Forms: ED Department Discharge Additional Instructions: Rest, ice pack, and elevate right foot to reduce pain and swelling. Use over the counter Tylenol (Acetaminophen) and/or Ibuprofen (Motrin/Advil) as needed for pain. Follow directions on label for dosing and precautions. Sepsis Event Note (ED) - Focused Exam Vital Signs: Vital Signs Temp Pulse Resp BP Pulse Ox 09/09/20 16:22 97.9 F 81 14 147/96 H 99 I have read and agree with the documentation that has been completed regarding this visit. By signing this record, I attest that the documentation was completed in my physical presence and is an accurate record of the encounter.
== END 2020-09-09 16:49 | disposition home or self-care (01) ==
LOC: DL.ED 16:13
DX: S90.31XA Contusion of right foot, initial encounter (principal); Z88.8 Allergy status to other drugs, medicaments and biological substances; W55.29XA Other contact with cow, initial encounter
CPT/HCPCS: 73630-RT; 99282; 99283-25

== ENCOUNTER 2020-12-04 23:31 | Emergency (ER) | payer BC ==
[2020-12-04] MEDS ORDERED: Ondansetron 4 MG Tab.DIS PO ONE (23:32)
[2020-12-04] MEDS ORDERED: Ketorolac 10 MG Tab PO ONE (23:32)
[2020-12-04] MEDS ORDERED: Tamsulosin 0.4 MG Cap.ER PO ONE (23:32)
[2020-12-05] MEDS ORDERED: Ketorolac 30 MG/ML SDV IVPUSH ONE (00:07)
[2020-12-05] MEDS ORDERED: Tamsulosin 0.4 MG Cap.ER PO ONE (00:07)
[2020-12-05] MEDS ORDERED: Ondansetron 4 MG/2 ML SDV IVPUSH ONE (00:07)
[2020-12-05] MEDS ORDERED: Sodium Chloride 0.9% 1,000 ML IV ONE (00:07)
[2020-12-05 00:41] VITALS: BP 146/77; PULSE 74
[2020-12-05 01:55] LABS: ANION GAP 12.2 mEq/L (7-13); CHLORIDE,CL 105 mmol/L (98-107); SODIUM,NA 140 mmol/L (136-145)
--- NOTE | 2020-12-05 02:03 | CT ---
PROCEDURE INFORMATION: Exam: CT Abdomen And Pelvis Without Contrast Exam date and time: 12/05/2020 1:12 AM Age: 60 years old Clinical indication: Other: R/O kidney stone; L CVA pain; Blood on ua TECHNIQUE: Imaging protocol: Computed tomography of the abdomen and pelvis without contrast. Radiation optimization: All CT scans at this facility use at least one of these dose optimization techniques: automated exposure control; mA and/or kV adjustment per patient size (includes targeted exams where dose is matched to clinical indication); or iterative reconstruction. COMPARISON: CT Abdomen Pelvis wo Cont 02/27/2018 2:29 PM FINDINGS: Liver: Diffuse fatty infiltration of the liver. Gallbladder and bile ducts: Normal. No calcified stones. No ductal dilation. Pancreas: Normal. No ductal dilation. Spleen: Normal. No splenomegaly. Adrenal glands: Normal. No mass. Kidneys and ureters: Bilateral punctate calyceal stones. 2 mm x 3 mm stone just above the left ureterovesicular junction causing moderate left hydronephrosis. Stomach and bowel: Unremarkable. No obstruction. No mucosal thickening. Appendix: No evidence of appendicitis. Intraperitoneal space: Unremarkable. No free air. No significant fluid collection. Vasculature: Unremarkable. No abdominal aortic aneurysm. Lymph nodes: Unremarkable. No enlarged lymph nodes. Urinary bladder: Unremarkable as visualized. Reproductive: Unremarkable as visualized. Bones/joints: Unremarkable. No acute fracture. Soft tissues: Unremarkable. IMPRESSION: 2 mm x 3 mm stone just above the left ureterovesicular junction causing moderate hydronephrosis.
--- NOTE | 2020-12-05 02:28 | EDM.PDOC ---
ED HPI GENERAL MEDICAL PROBLEM - General Chief Complaint: Genitourinary Problem Stated Complaint: PT SAYS KIDNEY STONES Time Seen by Provider: 12/05/20 00:45 Source of Information: Reports: Patient, RN, RN Notes Reviewed History Limitations: Reports: No Limitations - History of Present Illness INITIAL COMMENTS - FREE TEXT/NARRATIVE: Shawn is a 60 y/o male who presents to the ED via personal vehicle with for complaints of left flank pain. The patient reports a history of kidney stones and states the pain he is currently experiencing is similar to the previous episode several years ago. He states the pain began abruptly this evening and notes it has progressively worsened since that time. He characterizes the pain as intermittently sharp and notes it radiates from his flank into his left suprapubic region; he rates it at a 10/10. Additionally, he notes diaphoresis, nausea, vomiting, and urinary frequency. He denies recent illness, fever, palpitations, dyspepsia, hematemesis, hematuria, dysuria, inability to void, diarrhea, or constipation. He denies tobacco, alcohol, or recreational drug use. Left Flank Pain Score (Numeric/FACES): 10 - Related Data Allergies Allergy/AdvReac Type Severity Reaction Status Date / Time Phenothiazines Allergy Shortness Verified 12/05/20 00:41 of Breath prochlorperazine Allergy Anaphylactic Verified 12/05/20 00:41 [From Compazine] Shock prochlorperazine edisylate Allergy Anaphylactic Verified 12/05/20 00:41 [From Compazine] Shock prochlorperazine maleate Allergy Anaphylactic Verified 12/05/20 00:41 [From Compazine] Shock Home Meds: Home Meds . 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;R MALLEOLUS Neurological History: Reports: Concussion Psychiatric History: Reports: None Endocrine/Metabolic History: Reports: None Hematologic History: Reports: None Immunologic History: Reports: None Oncologic (Cancer) History: Reports: None Dermatologic History: Reports: None - Infectious Disease History Infectious Disease History: Reports: Chicken Pox, Shingles - Past Surgical History Head Surgeries/Procedures: Reports: None HEENT Surgical History: Reports: None Cardiovascular Surgical History: Reports: None Respiratory Surgical History: Reports: None GI Surgical History: Reports: Appendectomy Male Surgical History: Reports: None Endocrine Surgical History: Reports: None Neurological Surgical History: Reports: None Musculoskeletal Surgical History: Reports: None Oncologic Surgical History: Reports: None Dermatological Surgical History: Reports: None Social & Family History - Family History Family Medical History: No Pertinent Family History - Tobacco Use Tobacco Use Status *Q: Never Tobacco User - Caffeine Use Caffeine Use: Reports: Soda - Recreational Drug Use Recreational Drug Use: No ED ROS GENERAL - Review of Systems Review Of Systems: Comprehensive ROS is negative, except as noted in HPI. ED EXAM, RENAL/ - Physical Exam Exam: See Below Exam Limited By: No Limitations General Appearance: Alert, Anxious, Moderate Distress (Left flank pain), Thin, Other (Diaphoretic and ill-appearing). No: Active Emesis Eye Exam: Bilateral Eye: EOMI, Normal Inspection, PERRL (3mm) Throat/Mouth: Normal Inspection, Normal Oropharynx, Normal Voice, No Airway Compromise Head: Atraumatic, Normocephalic Neck: Normal Inspection, Supple, Non-Tender, Full Range of Motion Respiratory/Chest: No Respiratory Distress, Lungs Clear, Normal Breath Sounds, No Accessory Muscle Use, Chest Non-Tender Cardiovascular: Normal Peripheral Pulses, Regular Rate, Rhythm, No Edema, No Gallop, No JVD, No Murmur, No Rub GI/Abdominal: Soft, No Distention, No Abnormal Bruit, No Mass, Pelvis Stable, Guarding, Tender (To left suprapubic region and LLQ), Abnormal Bowel Sounds (Hypoactive bowel sounds). No: Rigid, Rebound (Male) Exam: No Hernia, Normal Inspection, Circumcised Rectal (Males) Exam: Deferred Back Exam: Normal Inspection, Full Range of Motion, CVA Tenderness (L). No: CVA Tenderness (R), Paraspinal Tenderness, Vertebral Tenderness Extremities: Normal Inspection, Normal Range of Motion, Non-Tender, Normal Capillary Refill, No Pedal Edema Neurological: Alert, Oriented, CN II-XII Intact, Normal Cognition, No Motor/Sensory Deficits, Abnormal Gait (Hunched over, clutching left flank) Psychiatric: Anxious Skin Exam: Warm, Intact, Normal Color, No Rash, Diaphoretic. No: Cyanosis, Jaundice, Mottled, Pallor Course - Vital Signs Last Recorded V/S: Last Vital Signs Temp 96.7 F L 12/05/20 00:15 Pulse 74 12/05/20 00:15 Resp 16 12/05/20 00:15 BP 146/77 H 12/05/20 00:15 Pulse Ox 96 12/05/20 00:15 - Orders/Labs/Meds Labs: Laboratory Tests 12/04/20 12/05/20 12/05/20 Range/Units 23:58 01:30 01:30 WBC 9.7 (5.0-10.0) 10^3/uL RBC 4.51 L (4.6-6.2) 10^6/uL Hgb 13.6 L D (14.0-18.0) g/dL Hct 40.8 (40.0-54.0) % MCV 90.5 (80-100) fL MCH 30.2 (27.0-34.0) pg MCHC 33.3 (33.0-35.0) g/dL Plt Count 223 (150-450) 10^3/uL Neut % (Auto) 89.6 H (42.2-75.2) % Lymph % (Auto) 6.5 L (20.5-50.1) % [place] % (Auto) 3.7 (2-8) % Eos % (Auto) 0.1 L (1.0-3.0) % Baso % (Auto) 0.1 (0.0-1.0) % Sodium 140 (136-145) mmol/L Potassium 4.2 (3.5-5.1) mmol/L Chloride 105 (98-107) mmol/L Carbon Dioxide 27 (21-32) mmol/L Anion Gap 12.2 (7-13) mEq/L BUN 19 H (7-18) mg/dL Creatinine 1.20 (0.70-1.30) mg/dL Est Cr Clr Drug Dosing 73.65 mL/min Estimated GFR (MDRD) > 60 BUN/Creatinine Ratio 15.8 (No establ ref range) Glucose 150 H (70-99) mg/dL Lactic Acid (0.4-2.0) mmol/L Calcium 8.0 L (8.5-10.1) mg/dL Total Bilirubin 0.3 (0.2-1.0) mg/dL AST 14 L (15-37) U/L ALT 32 (16-63) U/L Alkaline Phosphatase 70 (46-116) U/L Total Protein 6.0 L (6.4-8.2) g/dL Albumin 3.3 L (3.4-5.0) g/dL Globulin 2.7 Albumin/Globulin Ratio 1.22 Urine Color Yellow (YELLOW) Urine Appearance Slightly cloudy (CLEAR) Urine pH 7.0 (5.0-9.0) Ur Specific [place] >= 1.030 (1.005-1.030) Urine Protein Negative (NEGATIVE) Urine Glucose (UA) 100 H (NEGATIVE) Urine Ketones Negative (NEGATIVE) Urine Occult Blood Moderate H (NEGATIVE) Urine Nitrite Negative (NEGATIVE) Urine Bilirubin Negative (NEGATIVE) Urine Urobilinogen 0.2 (0.2-1.0) mg/dL Ur Leukocyte Esterase Trace H (NEGATIVE) Urine RBC 10-20 H /HPF Urine WBC 0-5 (0-5/HPF) /HPF Ur Epithelial Cells Occasional (NOT SEEN) /HPF Urine Bacteria Moderate H (0-FEW/HPF) /HPF 05/31/21 Range/Units 01:30 WBC (5.0-10.0) 10^3/uL RBC (4.6-6.2) 10^6/uL Hgb (14.0-18.0) g/dL Hct (40.0-54.0) % MCV (80-100) fL MCH (27.0-34.0) pg MCHC (33.0-35.0) g/dL Plt Count (150-450) 10^3/uL Neut % (Auto) (42.2-75.2) % Lymph % (Auto) (20.5-50.1) % [place] % (Auto) (2-8) % Eos % (Auto) (1.0-3.0) % Baso % (Auto) (0.0-1.0) % Sodium (136-145) mmol/L Potassium (3.5-5.1) mmol/L Chloride (98-107) mmol/L Carbon Dioxide (21-32) mmol/L Anion Gap (7-13) mEq/L BUN (7-18) mg/dL Creatinine (0.70-1.30) mg/dL Est Cr Clr Drug Dosing mL/min Estimated GFR (MDRD) BUN/Creatinine Ratio (No establ ref range) Glucose (70-99) mg/dL Lactic Acid 1.4 (0.4-2.0) mmol/L Calcium (8.5-10.1) mg/dL Total Bilirubin (0.2-1.0) mg/dL AST (15-37) U/L ALT (16-63) U/L Alkaline Phosphatase (46-116) U/L Total Protein (6.4-8.2) g/dL Albumin (3.4-5.0) g/dL Globulin Albumin/Globulin Ratio Urine Color (YELLOW) Urine Appearance (CLEAR) Urine pH (5.0-9.0) Ur Specific [place] (1.005-1.030) Urine Protein (NEGATIVE) Urine Glucose (UA) (NEGATIVE) Urine Ketones (NEGATIVE) Urine Occult Blood (NEGATIVE) Urine Nitrite (NEGATIVE) Urine Bilirubin (NEGATIVE) Urine Urobilinogen (0.2-1.0) mg/dL Ur Leukocyte Esterase (NEGATIVE) Urine RBC /HPF Urine WBC (0-5/HPF) /HPF Ur Epithelial Cells (NOT SEEN) /HPF Urine Bacteria (0-FEW/HPF) /HPF Meds: Medications Discontinued Medications Generic Name Dose Route Start Last Admin Trade Name Freq PRN Reason Stop Dose Admin Sodium Chloride 1,000 mls @ 999 mls/hr 12/05/20 00:07 12/05/20 00:19 Normal Saline IV 12/05/20 01:07 999 mls/hr .BOLUS ONE Administration Ketorolac Tromethamine 30 mg 12/05/20 00:07 12/05/20 00:19 Ketorolac 30 Mg/Ml Sdv IVPUSH 12/05/20 00:08 30 mg ONETIME ONE Administration Ketorolac Tromethamine Confirm 12/05/20 02:34 12/05/20 02:53 Ketorolac 10 Mg Tab Administered 12/05/20 02:35 Not Given Dose 40 mg .ROUTE .STK-MED ONE Ketorolac Tromethamine 10 mg 12/04/20 23:32 Ketorolac 10 Mg Tab PO 12/04/20 23:33 .STK-MED ONE Ondansetron HCl 4 mg 12/05/20 00:07 12/05/20 00:19 Ondansetron 4 Mg/2 Ml Sdv IVPUSH 12/05/20 00:08 4 mg ONETIME ONE Administration Ondansetron HCl Confirm 12/05/20 02:33 12/05/20 02:54 Ondansetron 4 Mg Tab.Dis Administered 12/05/20 02:34 Not Given Dose 16 mg .ROUTE .STK-MED ONE Ondansetron HCl 4 mg 12/04/20 23:32 Ondansetron 4 Mg Tab.Dis PO 12/04/20 23:33 .STK-MED ONE Tamsulosin HCl 0.4 mg 12/05/20 00:07 12/05/20 00:19 Tamsulosin 0.4 Mg Cap.Er PO 12/05/20 00:08 0.4 mg ONETIME ONE Administration Tamsulosin HCl Confirm 12/05/20 02:33 12/05/20 02:53 Tamsulosin 0.4 Mg Cap.Er Administered 12/05/20 02:34 Not Given Dose 0.4 mg .ROUTE .STK-MED ONE Tamsulosin HCl 0.4 mg 12/04/20 23:32 Tamsulosin 0.4 Mg Cap.Er PO 12/04/20 23:33 .STK-MED ONE - Radiology Interpretation Free Text/Narrative:: [facility] Final Radiology Report Call: [phone] assistance Online chat: [email or web address] Name: SHAWN ROBLEDO Age: 60Years M Date: 12/05/2020 SSN: -- : [id number] Study: CT ABDOMEN PELVIS WO CONT Requesting Physician: Adalgisa Hawk Images: [id number] Addl Studies: Provided Clinical History: r/o kidney stone; L CVA pain; Blood on UA Contrast: Without Contrast Medium: Contrast Amount: Contrast Method: Page 1 of 2 PROCEDURE INFORMATION: Exam: CT Abdomen And Pelvis Without Contrast Exam date and time: 12/05/2020 1:12 AM Age: 60 years old Clinical indication: Other: R/O kidney stone; L CVA pain; Blood on ua TECHNIQUE: Imaging protocol: Computed tomography of the abdomen and pelvis without contrast. Radiation optimization: All CT scans at this facility use at least one of these dose optimization techniques: automated exposure control; mA and/or kV adjustment per patient size (includes targeted exams where dose is matched to clinical indication); or iterative reconstruction. COMPARISON: CT Abdomen Pelvis wo Cont 02/27/2018 2:29 PM FINDINGS: Liver: Diffuse fatty infiltration of the liver. Gallbladder and bile ducts: Normal. No calcified stones. No ductal dilation. Pancreas: Normal. No ductal dilation. Spleen: Normal. No splenomegaly. Adrenal glands: Normal. No mass. Kidneys and ureters: Bilateral punctate calyceal stones. 2 mm x 3 mm stone just above the left ureterovesicular junction causing moderate left hydronephrosis. Stomach and bowel: Unremarkable. No obstruction. No mucosal thickening. Appendix: No evidence of appendicitis. Intraperitoneal space: Unremarkable. No free air. No significant fluid collection. Vasculature: Unremarkable. No abdominal aortic aneurysm. Lymph nodes: Unremarkable. No enlarged lymph nodes. Urinary bladder: Unremarkable as visualized. Reproductive: Unremarkable as visualized. Bones/joints: Unremarkable. No acute fracture. Soft tissues: Unremarkable. IMPRESSION: 2 mm x 3 mm stone just above the left ureterovesicular junction causing moderate hydronephrosis. Thank you for allowing us to participate in the care of your patient. Dictated and Authenticated by: Thea De La Rosa MD 12/05/2020 2:03 AM Central Time ([place] & [place]) - Re-Assessments/Exams Free Text/Narrative Re-Assessment/Exam: 12/05/20 NS 1L bolus, tamsulosin 0.4mg PO, Zofran 4mg IVP, and ketorolac 30mg IVP administered while labs and imaging pending. Patient verbalized improvement in symptoms following medication administration. Findings of examination, lab work, and imaging reviewed with patient. Will treat acute renal calculus with tamsulosin PO, ketorolac PO, and Zofran ODT. Discussed supportive cares for passing a kidney stone with patient and his , as well as red flag signs and symptoms which would warrant reevaluation. Patient verbalized understanding and agreement with the plan of care. Departure - Departure Time of Disposition: 02:18 Disposition: Home, Self-Care 01 Condition: Good Clinical Impression: Renal calculus, left, Hydronephrosis concurrent with and due to calculi of kidney and ureter - Discharge Information *PRESCRIPTION DRUG MONITORING PROGRAM REVIEWED*: Not Applicable *COPY OF PRESCRIPTION DRUG MONITORING REPORT IN PATIENT JACQUIE: Not Applicable Instructions: Kidney Stones, [id number] Referrals: PCP,None [Primary Care Provider] - Forms: ED Department Discharge Additional Instructions: Rx: tamsulosin Rx: ketorolac Rx: Zofran ODT 1.) Drink large amounts of water to flush out kidney, ureters, and bladder. 2.) You may take acetaminophen (Tylenol) 1000mg every six hours, as pain persists. Do no take additional NSAIDs while on ketorolac. 3.) Follow up with primary care provider, or return the to emergency department, with any fever, shaking chills, inability to void, or persistence of symptoms past 7 days. Sepsis Event Note (ED) - Evaluation Sepsis Screening Result: No Definite Risk
[2020-12-05] MEDS ORDERED: Ondansetron 4 MG Tab.DIS ONE (02:33)
[2020-12-05] MEDS ORDERED: Tamsulosin 0.4 MG Cap.ER ONE (02:33)
[2020-12-05] MEDS ORDERED: Ketorolac 10 MG Tab ONE (02:34)
== END 2020-12-05 02:55 | disposition home or self-care (01) ==
LOC: DL.ED 23:31
DX: N13.2 Hydronephrosis with renal and ureteral calculous obstruction (principal); Z88.5 Allergy status to narcotic agent
CPT/HCPCS: 36415; 74176; 80053; 81001; 83605; 85025; 87086; 96374; 96375; 99284; A9270; J1885; J2405; J7030

== ENCOUNTER 2022-12-08 09:38 | Emergency (ER) | payer BC ==
[2022-12-08] MEDS ORDERED: Ketorolac 30 MG/ML SDV IVPUSH ONE (09:40)
[2022-12-08] MEDS ORDERED: Ondansetron 4 MG/2 ML SDV IV ONE (09:40)
[2022-12-08] MEDS ORDERED: Sodium Chloride 0.9% 1,000 ML IV ONE (09:40)
[2022-12-08] MEDS ORDERED: Sodium Chloride 0.9% 10 ML Syringe FLUSH PRN (09:41)
[2022-12-08] MEDS ORDERED: HYDROmorphone 1 MG/ML Syringe IVPUSH ONE (09:41)
[2022-12-08 10:04] LABS: APPEARANCE,URINE SLIGHTLY CLOUDY (CLEAR); BILIRUBIN,URINE NEGATIVE (NEGATIVE); COLOR,URINE YELLOW (YELLOW); GLUCOSE,URINE NEGATIVE (NEGATIVE); KETONES,URINE NEGATIVE (NEGATIVE); LEUKOCYTE ESTERASE,URINE NEGATIVE (NEGATIVE); NITRITE,URINE NEGATIVE (NEGATIVE); OCCULT BLOOD,URINE LARGE (NEGATIVE); PH,URINE 8.5 (5.0-9.0); PROTEIN,URINE 30 (NEGATIVE); UROBILINOGEN,URINE 0.2 mg/dL (0.2-1.0)
[2022-12-08] MEDS ORDERED: Tamsulosin 0.4 MG Cap.ER PO ONE (10:04)
[2022-12-08 10:08] VITALS: BP 169/93; PULSE 70
[2022-12-08 10:12] LABS: AMORPHOUS SEDIMENT,URINE FEW /HPF (NOT SEEN); BACTERIA,URINE FEW /HPF (0-FEW/HPF); EPITHELIAL CELLS,URINE OCCASIONAL /HPF (NOT SEEN); RBC,URINE 40-50 /HPF (0-5); WBC,URINE 0-5 /HPF (0-5/HPF)
== END 2022-12-08 11:09 | disposition home or self-care (01) ==
LOC: DL.ED 09:38
DX: N20.0 Calculus of kidney (principal); Z88.8 Allergy status to other drugs, medicaments and biological substances
CPT/HCPCS: 81001; 96361; 96374; 96375; 99284; 99284-25; A9270-GY; J1170; J1885; J2405; J3490; J7030

== ENCOUNTER 2024-05-07 16:54 | Emergency (ER) | payer BC ==
[2024-05-07 17:32] LABS: APPEARANCE,URINE CLEAR (CLEAR); BILIRUBIN,URINE NEGATIVE (NEGATIVE); COLOR,URINE YELLOW (YELLOW); GLUCOSE,URINE NEGATIVE (NEGATIVE); KETONES,URINE NEGATIVE (NEGATIVE); LEUKOCYTE ESTERASE,URINE NEGATIVE (NEGATIVE); NITRITE,URINE NEGATIVE (NEGATIVE); OCCULT BLOOD,URINE LARGE (NEGATIVE); PROTEIN,URINE 100 (NEGATIVE); UROBILINOGEN,URINE 0.2 mg/dL (0.2-1.0)
[2024-05-07 17:40] LABS: AMORPHOUS SEDIMENT,URINE FEW /HPF (NOT SEEN); BACTERIA,URINE FEW /HPF (0-FEW/HPF); EPITHELIAL CELLS,URINE FEW /HPF (NOT SEEN); MUCUS,URINE MANY /LPF (NOT SEEN); RBC,URINE 30-40 /HPF (0-5)
[2024-05-07] MEDS ORDERED: Sodium Chloride 0.9% 10 ML Syringe FLUSH PRN (17:44)
[2024-05-07] MEDS: Ondansetron 4 MG/2 ML SDV IVPUSH ONE (17:56)
[2024-05-07] MEDS: Ketorolac 30 MG/ML SDV IVPUSH ONE (17:56)
[2024-05-07 17:57] LABS: BASOPHILS PERCENT AUTO 0.4 % (0.0-1.0); EOSINOPHILS PERCENT AUTO 0.2 % (1.0-3.0); HEMATOCRIT 47.6 % (40.0-54.0); LYMPHOCYTES PERCENT AUTO 7.6 % (20.5-50.1); MEAN CORPUSCULAR HGB CONC 33.6 g/dL (33.0-35.0); MEAN CORPUSCULAR VOLUME 89.3 fL (80-100); MONOCYTES PERCENT AUTO 4.3 % (2-8); NEUTROPHILS PERCENT AUTO 87.5 % (42.2-75.2); PLATELET COUNT,PLT 142 10^3/uL (150-450); RED BLOOD CELL COUNT 5.33 10^6/uL (4.6-6.2); WHITE BLOOD CELL COUNT,WBC 12.3 10^3/uL (5.0-10.0)
[2024-05-07 18:44] LABS: A/G RATIO 1.4; ALANINE AMINOTRANSFERASE,ALT 26 U/L (16-63); ALBUMIN 4.2 g/dL (3.4-5.0); ALKALINE PHOSPHATASE 89 U/L (46-116); ANION GAP 12.7 mEq/L (7-13); ASPARTATE AMNIOTRANSFERASE,AST 16 U/L (15-37); BILIRUBIN TOTAL 0.4 mg/dL (0.2-1.0); BLOOD UREA NITROGEN,BUN 18 mg/dL (7-18); BUN/CREATININE RATIO 13.6 (No establ ref range); CALCIUM 9.5 mg/dL (8.5-10.1); CARBON DIOXIDE,CO2 28 mmol/L (21-32); CHLORIDE,CL 105 mmol/L (98-107); CREATININE 1.32 mg/dL (0.70-1.30); GLUCOSE RANDOM 126 mg/dL (70-99); POTASSIUM,K 4.7 mmol/L (3.5-5.1); PROTEIN TOTAL,TP 7.1 g/dL (6.4-8.2); SODIUM,NA 141 mmol/L (136-145)
[2024-05-07 18:45] LABS: C-REACTIVE PROTEIN < 0.50 ng/dL (<=0.50); ESTIMATED GFR 61 mL/min (>=60)
[2024-05-07] MEDS: Acetaminophen/oxyCODONE 325-5 MG Tab PO ONE (18:56)
[2024-05-07] MEDS: Tamsulosin 0.4 MG Cap.ER PO ONE (18:56)
[2024-05-07 19:02] VITALS: PULSE 71
[2024-05-07 19:30] VITALS: BP 156/83
[2024-05-07] MEDS ORDERED: Take Home: Acetaminophen/oxyCODONE 325-5 MG, 5 Tab Pack PO ONE (19:30)
[2024-05-07] MEDS: Take Home: Acetaminophen/oxyCODONE 325-5 MG, 5 Tab Pack PO ONE (19:38)
[2024-05-07] MEDS: Take Home: Ondansetron 4 MG Tab.DIS, 5 Tab Pack PO ONE (19:38)
== END 2024-05-07 19:47 ==
LOC: DL.ED 16:54
DX: N13.2 Hydronephrosis with renal and ureteral calculous obstruction (principal); Z86.16 Personal history of COVID-19; Z90.49 Acquired absence of other specified parts of digestive tract; Z88.8 Allergy status to other drugs, medicaments and biological substances
CPT/HCPCS: 36415; 74176; 80053; 81001; 83605; 85025; 86140; 96374; 96375; 99284; A9270; J1885; J2405; Q0162

== ENCOUNTER 2024-12-10 12:28 | Emergency (ER) | payer BC ==
[2024-12-10] MEDS ORDERED: Sodium Chloride 0.9% 10 ML Syringe FLUSH PRN (12:43)
[2024-12-10 12:49] LABS: BASOPHILS PERCENT AUTO 0.1 % (0.0-1.0); EOSINOPHILS PERCENT AUTO 0.1 % (1.0-3.0); HEMATOCRIT 46.8 % (40.0-54.0); HEMOGLOBIN 16.4 g/dL (14.0-18.0); LYMPHOCYTES PERCENT AUTO 7.3 % (20.5-50.1); MEAN CORPUSCULAR HEMOGLOBIN 30.8 pg (27.0-34.0); MEAN CORPUSCULAR VOLUME 87.8 fL (80-100); MONOCYTES PERCENT AUTO 4.1 % (2-8); NEUTROPHILS PERCENT AUTO 88.4 % (42.2-75.2); PLATELET COUNT,PLT 268 10^3/uL (150-450); RED BLOOD CELL COUNT 5.33 10^6/uL (4.6-6.2); WHITE BLOOD CELL COUNT,WBC 11.1 10^3/uL (5.0-10.0)
[2024-12-10 12:50] LABS: APPEARANCE,URINE CLEAR (CLEAR); BILIRUBIN,URINE NEGATIVE (NEGATIVE); COLOR,URINE YELLOW (YELLOW); GLUCOSE,URINE 500 (NEGATIVE); KETONES,URINE NEGATIVE (NEGATIVE); LEUKOCYTE ESTERASE,URINE NEGATIVE (NEGATIVE); NITRITE,URINE NEGATIVE (NEGATIVE); OCCULT BLOOD,URINE SMALL (NEGATIVE); PH,URINE 8.5 (5.0-9.0); PROTEIN,URINE 30 (NEGATIVE); UROBILINOGEN,URINE 0.2 mg/dL (0.2-1.0)
[2024-12-10] MEDS: Ondansetron 4 MG/2 ML SDV IVPUSH ONE (12:50)
[2024-12-10] MEDS: Ketorolac 30 MG/ML SDV IVPUSH ONE (12:51)
[2024-12-10] MEDS: HYDROmorphone 0.5 MG/0.5 ML Syringe IVPUSH ONE (12:52)
[2024-12-10 12:59] LABS: EPITHELIAL CELLS,URINE FEW /HPF (NOT SEEN); MUCUS,URINE MODERATE /LPF (NOT SEEN)
[2024-12-10 13:00] LABS: AMORPHOUS SEDIMENT,URINE FEW /HPF (NOT SEEN)
[2024-12-10 13:01] LABS: BACTERIA,URINE FEW /HPF (0-FEW/HPF); WBC,URINE 0-5 /HPF (0-5/HPF)
[2024-12-10 13:02] LABS: HYALINE CASTS,URINE RARE
[2024-12-10 13:03] LABS: A/G RATIO 1.2; ALANINE AMINOTRANSFERASE,ALT 25 U/L (16-63); ALBUMIN 4.3 g/dL (3.4-5.0); ALKALINE PHOSPHATASE 95 U/L (46-116); ANION GAP 14.1 mEq/L (7-13); ASPARTATE AMNIOTRANSFERASE,AST 16 U/L (15-37); BILIRUBIN TOTAL 0.5 mg/dL (0.2-1.0); BLOOD UREA NITROGEN,BUN 11 mg/dL (7-18); BUN/CREATININE RATIO 9.3 (No establ ref range); CALCIUM 9.7 mg/dL (8.5-10.1); CARBON DIOXIDE,CO2 26 mmol/L (21-32); CHLORIDE,CL 103 mmol/L (98-107); CREATININE 1.18 mg/dL (0.70-1.30); EST CRCL DRUG DOSING (CG) 71.24 mL/min; GLUCOSE RANDOM 175 mg/dL (70-99); MAGNESIUM 2.2 mg/dL (1.8-2.4); POTASSIUM,K 4.1 mmol/L (3.5-5.1); PROTEIN TOTAL,TP 7.9 g/dL (6.4-8.2); SODIUM,NA 139 mmol/L (136-145)
[2024-12-10 13:04] LABS: C-REACTIVE PROTEIN < 0.50 ng/dL (<=0.50); ESTIMATED GFR 70 mL/min (>=60)
[2024-12-10 13:50] VITALS: BP 174/98; PULSE 71
== END 2024-12-10 13:59 | disposition home or self-care (01) ==
LOC: DL.ED 12:28
DX: N13.2 Hydronephrosis with renal and ureteral calculous obstruction (principal); Z88.8 Allergy status to other drugs, medicaments and biological substances; Z79.82 Long term (current) use of aspirin; Z79.899 Other long term (current) drug therapy; Z86.16 Personal history of COVID-19
CPT/HCPCS: 36415; 74176; 80053; 81001; 83735; 85025; 86140; 96374; 96375; 99284; J1885; J2405

== ENCOUNTER 2025-04-19 02:05 | Emergency (ER) | payer BC ==
[2025-04-19] MEDS ORDERED: Sodium Chloride 0.9% 10 ML Syringe FLUSH PRN (02:37)
[2025-04-19] MEDS: Ketorolac 30 MG/ML SDV IVPUSH ONE (02:45)
[2025-04-19 02:48] LABS: BASOPHILS PERCENT AUTO 0.5 % (0.0-1.0); EOSINOPHILS PERCENT AUTO 3.6 % (1.0-3.0); LYMPHOCYTES PERCENT AUTO 21.7 % (20.5-50.1); MONOCYTES PERCENT AUTO 7.2 % (2-8); NEUTROPHILS PERCENT AUTO 67.0 % (42.2-75.2); PLATELET COUNT,PLT 253 10^3/uL (150-450); RED BLOOD CELL COUNT 4.80 10^6/uL (4.6-6.2); WHITE BLOOD CELL COUNT,WBC 8.2 10^3/uL (5.0-10.0)
[2025-04-19 02:52] LABS: APPEARANCE,URINE CLEAR (CLEAR); GLUCOSE,URINE NEGATIVE (NEGATIVE); OCCULT BLOOD,URINE LARGE (NEGATIVE)
[2025-04-19 03:03] LABS: A/G RATIO 1.3; ALANINE AMINOTRANSFERASE,ALT 32.0 U/L (16-63); ASPARTATE AMNIOTRANSFERASE,AST 19.0 U/L (15-37); BILIRUBIN TOTAL 0.4 mg/dL (0.2-1.0); BLOOD UREA NITROGEN,BUN 20.0 mg/dL (7-18); CARBON DIOXIDE,CO2 26.0 mmol/L (21-32); CHLORIDE,CL 106.0 mmol/L (98-107); CREATININE 1.03 mg/dL (0.70-1.30); EST CRCL DRUG DOSING (CG) 81.62 mL/min; GLUCOSE RANDOM 145.0 mg/dL (70-99); POTASSIUM,K 3.7 mmol/L (3.5-5.1); PROTEIN TOTAL,TP 7.0 g/dL (6.4-8.2); SODIUM,NA 140.0 mmol/L (136-145)
[2025-04-19 03:06] LABS: LACTIC ACID 1.5 mmol/L (0.4-2.0)
[2025-04-19] MEDS: Ondansetron 4 MG/2 ML SDV IVPUSH ONE (03:06)
[2025-04-19 03:07] LABS: ESTIMATED GFR 82.0 mL/min (>=60)
[2025-04-19 03:07] LABS: EPITHELIAL CELLS,URINE RARE /HPF (NOT SEEN)
[2025-04-19] MEDS: Oxybutynin 5 MG Tab.ER PO ONE (04:25)
[2025-04-19] MEDS: oxyCODONE ER 10 MG TAB.ER PO ONE (05:40)
[2025-04-19] MEDS: Take Home: Acetaminophen/oxyCODONE 325-5 MG, 5 Tab Pack PO ONE (06:37)
[2025-04-19] MEDS: Take Home: Tamsulosin HCl 0.4 MG, 6 Cap Pack PO ONE (06:37)
[2025-04-19 06:51] VITALS: BP 145/71; PULSE 74
== END 2025-04-19 06:43 | disposition home or self-care (01) ==
LOC: DL.ED 02:05
DX: N13.2 Hydronephrosis with renal and ureteral calculous obstruction (principal); Z88.8 Allergy status to other drugs, medicaments and biological substances; Z86.16 Personal history of COVID-19
CPT/HCPCS: 36415; 74176; 80053; 81001; 83605; 83735; 85025; 96374; 96375; 99284; A9270; J1885; J2405

== ENCOUNTER 2025-04-30 15:47 | Emergency (ER) | payer BC ==
[2025-04-30 16:03] LABS: APPEARANCE,URINE SLIGHTLY CLOUDY (CLEAR); GLUCOSE,URINE NEGATIVE (NEGATIVE); OCCULT BLOOD,URINE LARGE (NEGATIVE)
[2025-04-30 16:13] LABS: EPITHELIAL CELLS,URINE FEW /HPF (NOT SEEN)
[2025-04-30] MEDS ORDERED: Sodium Chloride 0.9% 10 ML Syringe FLUSH PRN (16:31)
[2025-04-30 16:47] LABS: BASOPHILS PERCENT AUTO 0.1 % (0.0-1.0); EOSINOPHILS PERCENT AUTO 0.0 % (1.0-3.0); LYMPHOCYTES PERCENT AUTO 3.1 % (20.5-50.1); MONOCYTES PERCENT AUTO 2.9 % (2-8); NEUTROPHILS PERCENT AUTO 93.9 % (42.2-75.2); PLATELET COUNT,PLT 249 10^3/uL (150-450); RED BLOOD CELL COUNT 4.81 10^6/uL (4.6-6.2); WHITE BLOOD CELL COUNT,WBC 13.7 10^3/uL (5.0-10.0)
[2025-04-30] MEDS: fentaNYL 100 MCG/2 ML SDV IVPUSH ONE (16:47)
[2025-04-30] MEDS: Ondansetron 4 MG/2 ML SDV IVPUSH ONE (16:47)
[2025-04-30 16:59] LABS: LACTIC ACID 1.6 mmol/L (0.4-2.0)
[2025-04-30 17:04] LABS: INR 0.9 (0.9-1.2); PTT,PARTIAL THROMBOPLSTIN TIME 22.5 SEC (22.0-34.0)
[2025-04-30 17:05] LABS: A/G RATIO 1.3; ALANINE AMINOTRANSFERASE,ALT 41 U/L (16-63); ASPARTATE AMNIOTRANSFERASE,AST 21 U/L (15-37); BILIRUBIN TOTAL 0.6 mg/dL (0.2-1.0); BLOOD UREA NITROGEN,BUN 17 mg/dL (7-18); CARBON DIOXIDE,CO2 25 mmol/L (21-32); CHLORIDE,CL 106 mmol/L (98-107); CREATININE 1.19 mg/dL (0.70-1.30); GLUCOSE RANDOM 169 mg/dL (70-99); PHOSPHORUS 2.1 mg/dL (2.6-4.7); POTASSIUM,K 3.9 mmol/L (3.5-5.1); PROTEIN TOTAL,TP 7.0 g/dL (6.4-8.2); SODIUM,NA 141 mmol/L (136-145)
[2025-04-30 17:08] LABS: ESTIMATED GFR 69 mL/min (>=60)
[2025-04-30] MEDS: Iopamidol 612 MG/ML 100 ML Bottle IVPUSH ONE (17:27)
[2025-04-30] MEDS: Ketorolac 30 MG/ML SDV IVPUSH ONE (18:53)
[2025-04-30 20:21] VITALS: BP 130/66; PULSE 61
== END 2025-04-30 20:11 | disposition home or self-care (01) ==
LOC: DL.ED 15:47
DX: N13.2 Hydronephrosis with renal and ureteral calculous obstruction (principal); N39.0 Urinary tract infection, site not specified; Z86.16 Personal history of COVID-19; Z88.8 Allergy status to other drugs, medicaments and biological substances
CPT/HCPCS: 36415; 74178; 80053; 81001; 83605; 84100; 84145; 85025; 85610; 85730; 86140; 87040; 87086; 96374; 96375; 99284; A9270; J1885; J2405; J3010; Q9967